=== PATIENT | female | born 1955 | race Hispanic/Latino ===

== ENCOUNTER → 2017-08-18 | Day surgery (SDC) | payer OTHER ==
[~2017-08-18] MED LIST: ANASTROZOLE1 MG PO; BACTRIM DS TAB1 EACH PO; CLONIDINE HCL0.1 MG PO; FENTANYL CITRATE/PF 100MCG/2 ML INJ ONE; LIDOCAINE HCL 2% LOCAL INJ 5 ML SDV VIAL INJ ONE; LISINOPRIL10 MG PO; MIDAZOLAM HCL 2 MG/2 ML VIAL ONE; PROPOFOL IV EMULSION 10 MG/ML 50 ML VIAL ONE; TAMOXIFEN PO; TYLENOL WITH C1 EACH PO
--- NOTE | 2017-08-18 15:46 | Operative Report ---
DATE OF PROCEDURE: August 18, 2017 REFERRING PHYSICIAN: Dr. Price Shipman. PROCEDURE PERFORMED: Colonoscopy and polypectomy. INDICATIONS FOR COLONOSCOPY: Colorectal cancer screening. MEDICATION: Patient was done under MAC. Please see anesthesiologist's note. PROCEDURE: With the patient in the left lateral decubitus position, flexible fiberoptic Olympus colonoscope was inserted into the rectum with ease and advanced all the way to the cecum. One polyp was snared and two polyps were hot biopsied from the cecum. One polypectomy site in the cecum was hemoclipped. The ascending colon grossly appeared to be within normal limits. Two polyps were hot biopsied from the hepatic flexure. The transverse appeared to be within normal limits. Two polyps were hot biopsied from the descending colon. One polyp was hot biopsied from the sigmoid. One polyp was hot biopsied from the rectum. The scope was then retroflexed into the distal rectum and the area around the dentate line appeared to be within normal limits. The scope was then straightened out and was subsequently withdrawn. Patient tolerated the procedure well. IMPRESSION: 1. Cecal polyps times 3, 1 snared and 2, hot biopsied. 2. Hepatic flexure polyps x2, hot biopsied. 3. Descending colon polyps x2, hot biopsied. 4. Sigmoid colon polyp x1, hot biopsied. 5. Rectal polyp x1, hot biopsied. PLAN: Follow up histology. Initiate high-fiber, low-fat diet. Initiate high-fiber supplement. Patient will need a followup colonoscopy in 3 years. A total 9 polyps were removed. Job#: [id number] GH cc:SANJUANA SHIPMAN DO
== END | disposition home or self-care (01) ==
LOC: OR 11:26
PROVIDERS: ATTEND Internal Medicine Gastroenterology
DX: Z12.11 Encounter for screening for malignant neoplasm of colon (principal); K63.5 Polyp of colon; K62.1 Rectal polyp; I10 Essential (primary) hypertension; Z01.810 Encounter for preprocedural cardiovascular examination; Z85.3 Personal history of malignant neoplasm of breast
CPT/HCPCS: 45384; 45385; 93005; J2001; J2250; 44391